=== PATIENT | female | born 1980 | race Caucasian/White ===

== ENCOUNTER 2023-06-19 07:57 | Outpatient (AMB) | payer BC, SELFPAY ==
--- NOTE | 2023-06-19 08:00 | A.OFFVIS_ITS ---
Intake Vital Signs 06/19/23 08:07 Height 5 ft 3 in Weight 171 lb BMI 30.3 BP 102/70 Blood Pressure Location Lt brachial Position Sitting Pulse 78 Pulse Source Pulse Oximeter Pulse Oximetry (%) 98 Oxygen Delivery Method Room Air Intake Visit Reasons: E-INSURANCE EXECUTIVE: Sleep Apnea w/CPAP but can't wear Intake Note: NPV for Sleep Apnea [employer] Specialist Required: No Allergies No Known Allergies Allergy (Verified 06/19/23 08:01) HPI HPI Comments History of Present Illness Details 43 y/o female patient presents to manage MAXIM, dizziness and headache. Pt reports she was diagnosed with MAXIM about a year ago, and started BiPAP. She used the BiPAP for 6 months, but not tolerated. Pt wants to try other options to treat her sleep apnea. Pt has not evaluated by ENT or dentist to treat sleep apnea yet. Pt states that she wakes up a lot in the middle of night, having vivid dream. Pt reports she lost 65 lb over the last year. She was was wt management program, work with rooms director and personal protection specialist for wt loss. Pt also reports dizziness, she feels drunk, sometimes room spinning feeling and staggering. Pt reports hearing loss and tinnitus. She falls frequently, and had CT done recently. She was told that the CT was normal. She had neck pain, and recently finished physical therapy. Her neck pain has improved, but still has dizziness and tinnitus. Pt has hx of chronic migraine, is on Emgality, it helped a lot to reduce her migraine frequency and intensity. PFSH Surgical History (Updated 06/19/23 @ 08:04 by Cheryl Carranza CMA) Hx of cholecystectomy Hx of appendectomy Family History (Updated 06/19/23 @ 08:07 by Cheryl Carranza CMA) Father Skin cancer Rheumatic arteritis Social History (Updated 06/19/23 @ 08:07 by Cheryl Carranza CMA) Alcohol intake: never Patient Tobacco Use Status: Never used Tobacco Review of Systems Const All systems reviewed & are unremarkable except as noted in HPI and below Physical Exam Vital Signs: Last Vital Signs Pulse 78 06/19/23 08:07 BP 102/70 06/19/23 08:07 Pulse Ox 98 06/19/23 08:07 Oxygen Delivery Method Room Air 06/19/23 08:07 BMI result Body Mass Index 30.3 Const General: cooperative Nutritional Appearance: obese Orientation/consciousness: patient oriented x3 Neck Other: trapezium muscle tightness. Neck: Yes full ROM and Yes supple Resp Effort & Inspection: normal respiratory effort and able to speak in complete sentences Neuro Other: wide based walking, unable to do tandem walking. General: patient oriented x3 Cranial nerves: Yes Bilaterally intact EOM present, Yes Normal facial strength present, Yes Midline tongue present, Yes Symmetric palate elevation present, Yes Ability to bilaterally rotate head present and Yes Ability to bilaterally elevate shoulders present Cognition (Neuro): normal cognition Gait exam (Neuro): Wide-based gait present Motor exam (neuro): 5/5 motor strength present throughout, Pronator motor function not present, no tremor noted and Normal motor muscle tone present throughout Deep tendon reflexes (DTR's): Rt Biceps (C5, C6): 2+, Left biceps reflex intensity grade: 2+, Right brachioradialis reflex intensity grade: 2+, Left brachioradialis reflex intensity grade: 2+, Right patellar reflex intensity grade: 2+ and Left patellar reflex intensity grade: 2+ Coordination: tandem gait normal Psych Appearance: grossly normal Mental Status: mental status grossly normal Affect: normal affect Attitude: cooperative Assessment & Plan Assessment & Plan (1) Unsteady gait: Code(s): R26.81 - Unsteadiness on feet (2) Tinnitus: Code(s): H93.19 - Tinnitus, unspecified ear (3) Hearing loss: Code(s): H91.90 - Unspecified hearing loss, unspecified ear (4) Difficulty sleeping: Code(s): G47.9 - Sleep disorder, unspecified (5) Dizziness: Code(s): R42 - Dizziness and giddiness (6) MAXIM treated with BiPAP: Code(s): G47.33 - Obstructive sleep apnea (adult) (pediatric) Plan Advised patient to undergo in lab sleep study to assess sleep apnea. She lost 65 lb over the last year. Will f/u of sleep study for appropriate treatment options. Refer patient to ENT for evaluation of sleep apnea and hearing loss. Advised patient to undergo brain MRI to assess dizziness and unsteady gait. Orders: Orders MR head/brain wo/w con 06/19/23 G43.009 - Migraine without aura, not intractable, without status migrainosus, H91.90 - Unspecified hearing loss, unspecified ear, R26.81 - Unsteadiness on feet, R42 - Dizziness and giddiness RT PSG in-lab sleep study 06/19/23 G43.009 - Migraine without aura, not intractable, without status migrainosus, G47.33 - Obstructive sleep apnea (adult) (pediatric), G47.9 - Sleep disorder, unspecified, R42 - Dizziness and giddiness Referrals Ear/Nose/Throat Referral G47.33 - Obstructive sleep apnea (adult) (pediatric), H91.90 - Unspecified hearing loss, unspecified ear, H93.19 - Tinnitus, unspecified ear, R42 - Dizziness and giddiness Coding Level of Care Code New Pt Level 4 (81852) Diagnoses Unsteady gait R26.81 Tinnitus H93.19 Hearing loss H91.90 Difficulty sleeping G47.9 Dizziness R42 MAXIM treated with BiPAP G47.33
[2023-06-19 08:07] VITALS: BP 102/70; PULSE 78; O2SAT 98; BMI 30.3
== END 2023-06-19 08:55 | disposition home or self-care (01) ==
PROVIDERS: PCP Psychiatry & Neurology Neurology; Visit Provider Nurse Practitioner Family
DX: R26.81 Unsteadiness on feet (principal); H93.19 Tinnitus, unspecified ear; H91.90 Unspecified hearing loss, unspecified ear; G47.9 Sleep disorder, unspecified; R42 Dizziness and giddiness; G47.33 Obstructive sleep apnea (adult) (pediatric)
CPT/HCPCS: 99204

== ENCOUNTER → 2023-06-19 07:57 | Outpatient (BNVA) | payer BC, SELFPAY | PROVIDERS: PCP Psychiatry & Neurology Neurology; Visit Provider Nurse Practitioner Family ==

== ENCOUNTER 2023-07-12 17:13 | Outpatient (REF) | payer BC, SELFPAY ==
--- NOTE | ~2023-07-12 | MR_ITS ---
EXAMINATION: MR BRAIN WITHOUT AND WITH CONTRAST CLINICAL INFORMATION: Migraines, unsteadiness on feet, hearing loss COMPARISON: None. TECHNIQUE: Multiplanar, multisequence imaging was obtained without and with intravenous contrast. Intravenous contrast: 7.5 mL Gadavist. FINDINGS: The VII and VIII cranial nerve complexes are normal in course and caliber. No signal abnormality is visualized within the inner ear structures on the precontrast axial T1-weighted sequence. Fluid signal is preserved within the cochlea, semicircular canals, and vestibule on the high-resolution axial FIESTA sequence. There is no abnormal labyrinthine or intracanalicular enhancement on postcontrast imaging. No cerebellopontine angle lesion. No acute infarct. No acute intracranial hemorrhage or extra-axial fluid collection. The ventricles and sulci are normal in size and configuration without significant volume loss or hydrocephalus. A few scattered punctate T2 FLAIR hyperintense foci within the subcortical white matter are nonspecific, with a couple in the frontal lobes possibly attributable to reported history of migraine headaches. No abnormal intraparenchymal or leptomeningeal enhancement. No mass effect or herniation pattern. Normal appearance of the midline structures. Normal intracranial arterial and dural venous sinus flow voids. The orbits are grossly unremarkable. The paranasal sinuses and mastoids are well aerated. The craniocervical junction is intact. Normal marrow signal. MR/MR head/brain wo/w con IMPRESSION: No retrocochlear pathology. A few nonspecific supratentorial white matter foci, some of which may be attributable to reported history of migraine headaches. No pathologic intracranial enhancement.
[2023-07-12] MEDS: gadobutroL 7.5 ML VIAL IVPUSH (18:02)
== END 2023-07-12 17:14 | disposition home or self-care (01) ==
LOC: HO.MRI 17:13
PROVIDERS: PCP Physician Assistant; Visit Provider Nurse Practitioner Family
DX: G43.009 Migraine without aura, not intractable, without status migrainosus (principal); R42 Dizziness and giddiness
CPT/HCPCS: 70553; A9585

== ENCOUNTER → 2023-07-21 20:30 | Outpatient (REF) | payer BC, SELFPAY | LOC: HO.SL 20:30 | PROVIDERS: PCP Physician Assistant; Visit Provider Nurse Practitioner Family | DX: G47.33 Obstructive sleep apnea (adult) (pediatric) (principal); R42 Dizziness and giddiness | CPT/HCPCS: 95810 ==

== ENCOUNTER → 2023-07-22 04:41 | Outpatient (BNV) | payer BC, SELFPAY | PROVIDERS: PCP Physician Assistant; Visit Provider Psychiatry & Neurology Neurology | DX: G47.63 Sleep related bruxism (principal); R09.02 Hypoxemia | CPT/HCPCS: 95810 ==

== ENCOUNTER 2023-08-21 08:55 | Outpatient (AMB) | payer BC, SELFPAY ==
--- NOTE | 2023-08-21 09:02 | A.OFFVIS_ITS ---
Intake Vital Signs 08/21/23 09:04 Weight 152 lb 2 oz BP 92/62 Blood Pressure Location Lt brachial Position Sitting Pulse 78 Pulse Source Pulse Oximeter Pulse Oximetry (%) 97 Oxygen Delivery Method Room Air Intake Visit Reasons: f/u for worsening symptoms-Confirmed Chief Accounting Officer Required: No Allergies No Known Allergies Allergy (Verified 08/21/23 09:02) HPI HPI Comments History of Present Illness Details 43 y/o female patient presents for follo w up of sleep study, dizziness and frequent falls. The PSG sleep study result was significant for bruxism with frequent contractions note in the EMG channel. The oxygen was below 88% for over 50 min and supplement oxygen at 1LPM was used during the sleep study. There was no evidence of sleep apnea. Brain MRI report reviewed. No retrocochlear pathology. A few nonspecific supratentorial white matter foci, some of which may be attributable to reported history of migraine headaches. No pathologic intracranial enhancement. Pt reports she fell twice since the last visit. She was not dizzy, but feels like she is in a boat, had difficulty balancing and tripped over. Pt feels her legs dragging, too. Pt reports she had vestibular therapy in the past, but not really helpful for vertigo. PFSH Surgical History Hx of cholecystectomy Hx of appendectomy Family History Father Skin cancer Rheumatic arteritis (Updated 08/21/23 @ 09:04 by Cheryl Carranza CMA) Alcohol intake: never Patient Tobacco Use Status: Never used Tobacco Review of Systems Const All systems reviewed & are unremarkable except as noted in HPI and below Physical Exam Vital Signs: Last Vital Signs Pulse 78 08/21/23 09:04 BP 92/62 08/21/23 09:04 Pulse Ox 97 08/21/23 09:04 Oxygen Delivery Method Room Air 08/21/23 09:04 Const General: cooperative Nutritional Appearance: obese Orientation/consciousness: patient oriented x3 Neck Other: trapezium muscle tightness. Neck: Yes full ROM and Yes supple Resp Effort & Inspection: normal respiratory effort and able to speak in complete sentences Neuro Other: wide based walking, unable to do tandem walking. General: patient oriented x3 Cranial nerves: Yes Bilaterally intact EOM present, Yes Normal facial strength present, Yes Midline tongue present, Yes Symmetric palate elevation present, Yes Ability to bilaterally rotate head present and Yes Ability to bilaterally elevate shoulders present Cognition (Neuro): normal cognition Gait exam (Neuro): Wide-based gait present Motor exam (neuro): 5/5 motor strength present throughout, Pronator motor function not present, no tremor noted and Normal motor muscle tone present throughout Deep tendon reflexes (DTR's): Rt Biceps (C5, C6): 2+, Left biceps reflex intensity grade: 2+, Right brachioradialis reflex intensity grade: 2+, Left brachioradialis reflex intensity grade: 2+, Right patellar reflex intensity grade: 2+ and Left patellar reflex intensity grade: 2+ Coordination: tandem gait normal Psych Appearance: grossly normal Mental Status: mental status grossly normal Affect: normal affect Attitude: cooperative Assessment & Plan Assessment & Plan (1) Hypoxemia associated with sleep: Code(s): G47.36 - Sleep related hypoventilation in conditions classified elsewhere (2) Bruxism, sleep-related: Code(s): G47.63 - Sleep related bruxism (3) Unsteady gait: Code(s): R26.81 - Unsteadiness on feet (4) Tinnitus: Code(s): H93.19 - Tinnitus, unspecified ear (5) Dizziness: Code(s): R42 - Dizziness and giddiness Plan Advised patient to consult with her dentist for mouth guard to prevent bruxism. Start flexeril 5 mg along with magnesium 400 mg qHS for muscle contrations. Advised patient to take cervical x ray to assess neck pain and dizziness. Refer patient to physical therapy for myofascial release. Will check blood gas to assess obesity hypoventilation syndrome. Orders: Orders XR cervical spine 2V Today G43.009 - Migraine without aura, not intractable, without status migrainosus, G47.63 - Sleep related bruxism, H93.19 - Tinnitus, unspecified ear, M54.2 - Cervicalgia, R26.81 - Unsteadiness on feet, R42 - Dizziness and giddiness ABG Today G47.36 - Sleep related hypoventilation in conditions classified elsewhere PT Evaluation and Treatment 12 Weeks G43.009 - Migraine without aura, not intractable, without status migrainosus, G47.63 - Sleep related bruxism, H93.19 - Tinnitus, unspecified ear, M54.2 - Cervicalgia, R26.81 - Unsteadiness on feet, R42 - Dizziness and giddiness Medications: New cyclobenzaprine 5 mg PO BEDTIME 30 days 30 tabs 1RF magnesium oxide 400 mg PO BEDTIME 30 days 30 tabs 1RF Coding Level of Care Code Est Pt Level 4 (02914) Diagnoses Hypoxemia associated with sleep G47.36 Bruxism, sleep-related G47.63 Unsteady gait R26.81 Tinnitus H93.19 Dizziness R42
[2023-08-21 09:04] VITALS: BP 92/62; PULSE 78; O2SAT 97
== END 2023-08-21 09:37 | disposition home or self-care (01) ==
PROVIDERS: PCP Physician Assistant; Visit Provider Nurse Practitioner Family
DX: G47.63 Sleep related bruxism (principal); R29.6 Repeated falls; H93.13 Tinnitus, bilateral; R42 Dizziness and giddiness
CPT/HCPCS: 99214

== ENCOUNTER → 2023-08-21 08:55 | Outpatient (BNVA) | payer BC, SELFPAY | PROVIDERS: PCP Physician Assistant; Visit Provider Nurse Practitioner Family ==

== ENCOUNTER 2023-09-22 13:32 | Outpatient (REF) | payer BC, SELFPAY | END 2023-09-22 13:33 | disposition home or self-care (01) | LOC: HO.XRAY 13:32 | PROVIDERS: PCP Physician Assistant; Visit Provider Nurse Practitioner Family | DX: Z13.89 Encounter for screening for other disorder (principal) ==

== ENCOUNTER 2023-12-22 08:09 | Outpatient (AMB) | payer BC, SELFPAY ==
--- NOTE | 2023-12-22 08:14 | A.OFFVIS_ITS ---
Intake Vital Signs 12/22/23 08:15 Height 5 ft 3 in Weight 120 lb BMI 21.3 BP 96/74 Blood Pressure Location Rt brachial Position Sitting Pulse 84 Pulse Source Pulse Oximeter Pulse Oximetry (%) 98 Oxygen Delivery Method Room Air Intake Visit Reasons: Dizziness-LVM Intake Note: Patient presents for dizziness. dizziness has gotten worst comes and goes and causes me to fall over. has had a couple falls because of it Allergies No Known Allergies Allergy (Verified 01/02/24 10:26) Medication List - Last Reconciled 12/22/23 by WICHO Jackson fluoxetine 20 mg PO DAILY gabapentin 600 mg PO TID galcanezumab-gnlm (Emgality Pen) 120 mg subcut ONCE 30 days lamotrigine 200 mg PO BID magnesium oxide 400 mg PO BEDTIME 30 days rosuvastatin 5 mg PO DAILY semaglutide (weight loss) (Wegovy) mg subcut HPI HPI Comments History of Present Illness Details 43-yr-old female presents for f/u visit. Pt reports she continues to be dizzy despite doing extensive vestibular PT. Her PT is concerned that pt has nystagmus. She has had the dizziness for the past 6 months- 1yr. She describes her dizziness- a feeling like she is drunk, not right in space sensation. This can be a/w diplopia, and a feeling like she cannot use her legs- she will just fall over. Her vision will become blurry, her depth perception becomes weird- this makes her feel like she is on a rocking boat. Sometimes, when she has fallen, she just cannot move her legs and is stuck on the ground x's 1-2 minutes. She has the dizziness at least once a day- lasts 1-2 minutes, or may linger for 5-10 minutes hwere she needs to hold herself up against a wall- but sometimes she just falls. down. She has approx 2 dizziness episodes w/ falling a week. She has recently fallen down 2 flights of stairs- and hit her head. Denies any usual triggers- can happen with but not always a/w just standing up, exercising (walking quickly on a treadmill), eating. Denies any typical time of day these attacks occur. She has dizziness a/w her migraine- however when she has a migraine she just lays down so she does not fall down. Her typical migraine - aura- bilateral kaledoscope, more on left x's 30 minutes. Severe pounding, retroorbital pain, a/w photophobia, osmophobia, allodynia, nausea, vomiting, more severe room spinning dizziness, brain fog, activity intolerance. She has a migraine twice a week. No daily headache. She has been on Emgality x's 2 yrs- the Emgality has decreased her migraine burden in both frequency and severity. Sumatriptan- some effect, but tolerates. Her previous migraine med tx's- Ajovy. 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 Last seizure was in 2009 while . She has been on Lamotrigene x's at least 2 yrs for migraine. She does not believe she has had her lamotrigine level checked in some time. She had seen neurology at [facility] who though the dizziness was r/t sleep apnea. F/u sleep study here showed AHI 0.2/hr w/ O2 glenroy of 84% (SpO2 < 88% x's > 50 minutes, average SpO2 90%). She was advsied to have ABGs- which pt states she had done, but results are not available. Pt denies h/o asthma, COPD, SOB, wheezing, usual cough, hoarseness. Denies family h/o resp d/o's. [facility] Surgical History Hx of cholecystectomy Hx of appendectomy Family History Father Skin cancer Rheumatic arteritis Social History (Updated 01/02/24 @ 10:28 by Corinna Martines LPN) Alcohol intake: never Patient Tobacco Use Status: Never used Tobacco Physical Exam Vital Signs: Last Vital Signs Pulse 84 12/22/23 08:15 BP 96/74 12/22/23 08:15 Pulse Ox 98 12/22/23 08:15 Oxygen Delivery Method Room Air 12/22/23 08:15 BMI result Body Mass Index 21.3 Const General: cooperative and no acute distress Orientation/consciousness: patient oriented x3 Resp Effort & Inspection: normal respiratory effort and able to speak in complete sentences Neuro General: patient oriented x3 Cranial nerves: Yes CN's II-XII intact bilaterally Cognition (Neuro): normal cognition Psych Appearance: grossly normal Mental Status: mental status grossly normal Speech and movement: Normal speech and movement present Affect: normal affect Attitude: cooperative Assessment & Plan Assessment & Plan (1) Dizziness: Code(s): R42 - Dizziness and giddiness (2) Hypoxemia associated with sleep: Code(s): G47.36 - Sleep related hypoventilation in conditions classified elsewhere Plan For dizziness and nystagmus: I suspect that patient's recurrent dizziness and nystagmus may be attributed to her lamotrigine use. Patient is currently taking 200 mg b.i.d., which was started prior to her recent 100 lb weight loss. Additionally, this is a high dose of lamotrigine, especially as patient is not on a con, in enzyme-inducing AED. Will check lamotrigine level. We will check nutritional labs, to ensure no nutritional deficiencies that may be contributing to her dizziness and falls. For migraine: We will refill sumatriptan 100 mg p.r.n.. Discussed that in general lamotrigine can be helpful for migraine aura, however is not as effective for migraine headache pain. Continue Emgality 120 mg subcu q.month. For nocturnal hypoxemia noted on recent HST: Will refer patient for pulmonology consult. Follow-up upon review of above, and in 3 months or sooner as needed. Orders: Orders Complete Blood Count Auto Diff 12/22/23 G47.36 - Sleep related hypoventilation in conditions classified elsewhere, G43.009 - Migraine without aura, not intractable, without status migrainosus, W19.XXXA - Unspecified fall, initial encounter, R53.1 - Weakness, R42 - Dizziness and giddiness, R63.4 - Abnormal weight loss TSH reflex Free T4 12/22/23 G47.36 - Sleep related hypoventilation in conditions classified elsewhere, G43.009 - Migraine without aura, not intractable, without status migrainosus, W19.XXXA - Unspecified fall, initial encounter, R53.1 - Weakness, R42 - Dizziness and giddiness, R63.4 - Abnormal weight loss Vitamin A 12/22/23 G47.36 - Sleep related hypoventilation in conditions classified elsewhere, G43.009 - Migraine without aura, not intractable, without status migrainosus, W19.XXXA - Unspecified fall, initial encounter, R53.1 - Weakness, R42 - Dizziness and giddiness, R63.4 - Abnormal weight loss Vitamin B12 12/22/23 G47.36 - Sleep related hypoventilation in conditions classified elsewhere, G43.009 - Migraine without aura, not intractable, without status migrainosus, [id number].XXXA - Unspecified fall, initial encounter, R53.1 - Weakness, R42 - Dizziness and giddiness, R63.4 - Abnormal weight loss Vitamin B3 (Niacin) 12/22/23 G47.36 - Sleep related hypoventilation in conditions classified elsewhere, G43.009 - Migraine without aura, not intractable, without status migrainosus, [id number].XXXA - Unspecified fall, initial encounter, R53.1 - Weakness, R42 - Dizziness and giddiness, R63.4 - Abnormal weight loss Vitamin B6 12/22/23 G47.36 - Sleep related hypoventilation in conditions classified elsewhere, G43.009 - Migraine without aura, not intractable, without status migrainosus, [id number].XXXA - Unspecified fall, initial encounter, R53.1 - Weakness, R42 - Dizziness and giddiness, R63.4 - Abnormal weight loss Vitamin C 12/22/23 G47.36 - Sleep related hypoventilation in conditions classified elsewhere, G43.009 - Migraine without aura, not intractable, without status migrainosus, [id number].XXXA - Unspecified fall, initial encounter, R53.1 - Weakness, R42 - Dizziness and giddiness, R63.4 - Abnormal weight loss Vitamin D 25-OH (D2 and D3) 12/22/23 G47.36 - Sleep related hypoventilation in conditions classified elsewhere, G43.009 - Migraine without aura, not intractable, without status migrainosus, [id number].XXXA - Unspecified fall, initial encounter, R53.1 - Weakness, R42 - Dizziness and giddiness, R63.4 - Abnormal weight loss Vitamin E 12/22/23 G47.36 - Sleep related hypoventilation in conditions classified elsewhere, G43.009 - Migraine without aura, not intractable, without status migrainosus, [id number].XXXA - Unspecified fall, initial encounter, R53.1 - Weakness, R42 - Dizziness and giddiness, R63.4 - Abnormal weight loss Vitamin K1 12/22/23 G47.36 - Sleep related hypoventilation in conditions class ified elsewhere, G43.009 - Migraine without aura, not intractable, without status migrainosus, [id number].XXXA - Unspecified fall, initial encounter, R53.1 - Weakness, R42 - Dizziness and giddiness, R63.4 - Abnormal weight loss Lamotrigine Lamictal 12/22/23 G47.36 - Sleep related hypoventilation in conditions classified elsewhere, G43.009 - Migraine without aura, not intractabl e, without status migrainosus, [id number].XXXA - Unspecified fall, initial encounter, R53.1 - Weakness, R42 - Dizziness and giddiness, R63.4 - Abnormal weight loss Comprehensive Met. Panel 12/22/23 G47.36 - Sleep related hypoventilation in conditions classified elsewhere, G43.009 - Migraine without aura, not intractable, without status migrainosus, [id number].XXXA - Unspecified fall, initial encounter, R53.1 - Weakness, R42 - Dizziness and giddiness, R63.4 - Abnormal weight loss Vitamin B12 and Folate 12/22/23 G47.36 - Sleep related hypoventilation in co nditions classified elsewhere, G43.009 - Migraine without aura, not intractable, without status migrainosus, [id number].XXXA - Unspecified fall, initial encounter, R53.1 - Weakness, R42 - Dizziness and giddiness, R63.4 - Abnormal weight loss Vitamin B1 12/22/23 G47.36 - Sleep related hypoventilation in conditions classified elsewhere, G43.009 - Migraine without aura, not intractable, without status migrainosus, [id number].XXXA - Unspecified fall, initial encounter, R53.1 - Weakness, R42 - Dizziness and giddiness, R63.4 - Abnormal weight loss Vitamin B2 (Riboflavin) 12/22/23 G47.36 - Sleep related hypoventilation in conditions classified elsewhere, G43.009 - Migraine without aura, not intractable, without status migrainosus, [id number].XXXA - Unspecified fall, initial encounter, R53.1 - Weakness, R42 - Dizziness and giddiness, R63.4 - Abnormal weight loss Vitamin B5 (Pantothenic Acid) 12/22/23 G47.36 - Sleep related hypoventilation in conditions classified elsewhere, G43.009 - Migraine without aura, not intractable, without status migrainosus, [id number].XXXA - Unspecified fall, initial encounter, R53.1 - Weakness, R42 - Dizziness and giddiness, R63.4 - Abnormal weight loss Referrals Pulmonology Referral G47.36 - Sleep related hypoventilation in conditions classified elsewhere Medications: New sumatriptan succinate 50 - 100 mg orally at onset of headache, may repeat in 2 hrs PRN; max 2 tabs per day or 4 tabs/week (may take with Ibuprofen) 12 tabs 6RF migraine headache 30 days Coding Level of Care Code Est Pt Level 4 (31694) Diagnoses Dizziness R42 Hypoxemia associated with sleep G47.36
[2023-12-22 08:15] VITALS: BP 96/74; PULSE 84; O2SAT 98; BMI 21.3
== END 2023-12-22 09:14 | disposition home or self-care (01) ==
PROVIDERS: PCP Physician Assistant; Visit Provider Nurse Practitioner Family
DX: R42 Dizziness and giddiness (principal); G47.36 Sleep related hypoventilation in conditions classified elsewhere
CPT/HCPCS: 99214

== ENCOUNTER → 2023-12-22 08:09 | Outpatient (BNVA) | payer BC, SELFPAY | PROVIDERS: PCP Physician Assistant; Visit Provider Nurse Practitioner Family ==

== ENCOUNTER 2024-01-02 10:18 | Outpatient (AMB) | payer BC, SELFPAY ==
[2024-01-02 10:23] VITALS: BP 118/64; PULSE 73; O2SAT 98; BMI 21.1
--- NOTE | 2024-01-02 10:23 | A.OFFVIS_ITS ---
Intake Vital Signs 01/02/24 10:23 Height 5 ft 3 in Weight 119 lb BMI 21.1 BP 118/64 Blood Pressure Location Rt brachial Position Sitting Pulse 73 Pulse Source Pulse Oximeter Pulse Oximetry (%) 98 Oxygen Delivery Method Room Air Intake Visit Reasons: Sleep related hypoventilation Fire Chief'S Aide Required: No Fire Chief'S Aide: Fire Chief'S Aide offered & declined Accompanied by: Self / Same As Patient Allergies No Known Allergies Allergy (Verified 01/02/24 10:26) Medication List - Last Reconciled 01/02/24 by Corinna Martines LPN fluoxetine 20 mg PO DAILY gabapentin 600 mg PO TID galcanezumab-gnlm (Emgality Pen) 120 mg subcut ONCE 30 days lamotrigine 200 mg PO BID rosuvastatin 5 mg PO DAILY semaglutide (weight loss) (Wegovy) mg subcut sumatriptan succinate 50 - 100 mg orally at onset of headache, may repeat in 2 hrs PRN; max 2 tabs per day or 4 tabs/week (may take with Ibuprofen) 30 days HPI Sleep related hypoventilation HPI Details Tyra is pleasant 43 year female, never smoker, with underlying asthma, bipolar disorder and seizure disorder. She was referred by neurology/sleep medicine for pulmonary evaluation for nocturnal hypoxemia. She reports being diagnosed with mild sleep apnea years ago and symptoms of morning headache, daytime fatigue and PND, using BiPAP with good effect. She then started on an exercise and diet regimen, ultimately using wegovy, losing 100 lbs over the last year. Since the she had recent sleep study which did not reveal sleep apnea, however did reveal oxygen saturation <88% for about an hour. She reports grandmother, smoker with COPD, otherwise no pertinent family history. She reports being diagnosed with asthma as a child, but has not had any symptoms as an adult. Denies any intubations. At this time, she denies cough, wheezing or chest tightness. She denies dyspnea at rest but will occasionally feel short of breath with intense exercise, such as running. PFSH Surgical History Hx of cholecystectomy Hx of appendectomy Family History Father Skin cancer Rheumatic arteritis Social History (Updated 01/02/24 @ 10:28 by Corinna Martines LPN) Alcohol intake: never Patient Tobacco Use Status: Never used Tobacco Review of Systems Const Denies chills, Denies excessive sweating, Denies fever(s), Denies headache(s) and Denies night sweats Eyes Denies dry eyes, Denies irritation and Denies itchy eyes ENT Reports Normal hearing present, Denies headache(s), Denies nasal congestion, Denies nasal discharge, Denies post nasal drip and Denies sore throat Card Denies chest pain, Denies chest pain at rest, Denies chest pain with activity, Denies claudication, Denies leg edema, Denies dyspnea, Denies orthopnea and Denies paroxysmal nocturnal dyspnea Resp Denies chest congestion, Denies cough, Denies excessive phlegm production, Denies pain on inspiration, Denies pain with cough, Denies dyspnea, Denies stridor and Denies wheezing Musc Denies myalgias Neuro Reports Normal hearing present and Denies headache(s) Endo Denies excessive sweating Rahul/Lymph Denies lymphadenopathy Aller/Immun Denies itchy eyes, Denies seasonal rhinorrhea and Denies wheezing Physical Exam Vital Signs: Last Vital Signs Pulse 73 01/02/24 10:23 BP 118/64 01/02/24 10:23 Pulse Ox 98 01/02/24 10:23 Oxygen Delivery Method Room Air 01/02/24 10:23 BMI result Body Mass Index 21.1 Const General: cooperative, healthy appearing, comfortable, no acute distress, well developed and alert Orientation/consciousness: patient oriented x3 Limitations: no limitations HEENT Head: Yes normal to inspection, Yes normocephalic and Yes atraumatic Ears: hearing grossly normal bilaterally and external ears normal Eyes General: appearance normal, both eyes and all related structures Eyelids: Yes eyelids normal Sclerae: sclerae normal EOM: EOMs intact bilaterally Neck Neck: Yes normal visual inspection and Yes no lymphadenopathy Lymphatic: no lymphadenopathy noted Chest Chest palpation & inspection: normal inspection of the chest Resp Effort & Inspection: normal respiratory effort, able to speak in complete s entences, no audible wheezes, no cough, no stridor, not tachypneic, no tripod positioning and no use of accessory muscles Auscultation: clear to auscultation bilaterally Cardio Jugular venous distension: no JVD Rate: regular rate Rhythm: regular rhythm Skin Other: warm, dry General skin exam: no rashes or lesions noted Neuro General: patient oriented x3 Cranial nerves: Yes Normal hearing present Cognition (Neuro): normal cognition Gait exam (Neuro): Normal gait present Extrem General: Yes normal to inspection, Yes capillary refill normal, Yes no clubbing, cyanosis or edema and Yes no pedal edema Psych Appearance: grossly normal and well kempt Speech and movement: Normal speech and movement present and Clear speech present Affect: normal affect Attitude: cooperative Thought process: Normal thought process present Thought content: Normal thought content present Insight: Good insight present (Psych) Judgement: Good judgement present (Psych) Office Procedures 6 Minute Walk Time:: 10:44 SPO2 % at rest: 97 Pulse at rest: 74 SPO2 % during excercise: 90 Pulse during excercise: 112 SPO2 % after excercise: 99 Pulse after excercise: 80 Distance in yards walked: 1,000 Lily Score: 3 Performance Observations:: Patient walked unassisted on level ground at a moderate pace. Maintained O2 saturation at 90% or greater and pulse rate of 112 or lower for the entire walk. Patient denies shortness of breath. Patient did not require O2 supplementation. 52595 - 6 Minute Walk Assessment & Plan Assessment & Plan (1) Hypoxemia associated with sleep: Code(s): G47.36 - Sleep related hypoventilation in conditions classified elsewhere (2) Dyspnea on exertion: Code(s): R06.09 - Other forms of dyspnea Plan Tyra presents for evaluation of nocturnal hypoxia found on recent sleep study. Prior history of MAXIM but resolved with 100 lb weight loss. Unclear etiology of hypoxia, will send for PFT to assess for underlying respiratory disorder. 6MWT performed and patient's oxygen saturation decreased to 90%, however did not decrease below 88%. Will also send for CXR, with possible CT chest to assess for parenchymal condition contributing to nocturnal hypoxia. If unremarkable, will consider echo. All questions were answered and patient is in agreement of plan. Will follow up to review results. Orders: Orders XR chest 2V Today R09.02 - Hypoxemia AMB 6 minute walk Today G47.36 - Sleep related hypoventilation in conditions classified elsewhere, R09.02 - Hypoxemia PFT pulmonary function test Today G47.36 - Sleep related hypoventilation in conditions classified elsewhere, R06.09 - Other forms of dyspnea Coding Level of Care Code New Pt Level 4 (43689) Diagnoses Hypoxemia associated with sleep G47.36 Dyspnea on exertion R06.09 CPT Codes Coding ([id number])
[2024-01-02 11:00] VITALS: PULSE 74; O2SAT 97
== END 2024-01-02 11:04 | disposition home or self-care (01) ==
PROVIDERS: PCP Physician Assistant; Visit Provider Nurse Practitioner Family
DX: R06.09 Other forms of dyspnea (principal); G47.36 Sleep related hypoventilation in conditions classified elsewhere
CPT/HCPCS: 94618; 99204

== ENCOUNTER → 2024-01-02 10:18 | Outpatient (BNVA) | payer BC, SELFPAY | PROVIDERS: PCP Physician Assistant; Visit Provider Nurse Practitioner Family | DX: R09.02 Hypoxemia (principal); G47.36 Sleep related hypoventilation in conditions classified elsewhere; R06.09 Other forms of dyspnea | CPT/HCPCS: 94618 ==

== ENCOUNTER 2024-02-23 10:01 | Outpatient (REF) | payer BC, SELFPAY ==
[2024-02-23 09:54] VITALS: PULSE 84; RESP 16; O2SAT 99
[2024-02-23 11:09] LABS: MANUAL DIFF FLAG NO
[2024-02-23 11:40] LABS: Basophils Percent Auto 0.8 % (0-2); Eosinophils Absolute Auto 0.1 X10*3/uL (0.0-0.4); Eosinophils Percent Auto 1.5 % (0-4); Hematocrit 41.5 % (37.0-47.0); Hemoglobin 14.1 g/dl (12.0-16.0); Imm Gran Abs Auto 0.01 X10*3/uL (0.00-0.03); Imm Gran Pct Auto 0.3 % (0.0-0.4); Lymphocytes Absolute Auto 1.1 X10*3/uL (1.2-4.9); Lymphocytes Percent Auto 27.4 % (20-40); Mean Corpuscular Hemoglobin 31.7 pg (27.0-33.0); Mean Corpuscular Volume 93.3 fL (80.0-98.0); Mean Platelet Volume 8.5 fL (9.4-12.3); Monocytes Absolute Auto 0.5 X10*3/uL (0.1-1.2); Monocytes Percent Auto 12.8 % (2-11); Neutrophils Absolute Auto 2.2 x10*3/uL (2.0-8.3); Neutrophils Percent Auto 57.2 % (45-73); Platelet Count 242 X10*3/uL (160-400); Red Blood Count 4.45 X10*6/uL (4.20-5.50); Red Cell Distribution Width 13.9 % (11.0-16.0); White Blood Count 3.9 X10*3/uL (4.8-10.8)
[2024-02-23 12:19] LABS: Alanine Aminotransferase 20 U/L (0-31); Albumin Level 4.1 g/dL (3.5-5.0); Alkaline Phosphatase 74 U/L (39-117); Anion Gap 12 (12-20); Aspartate Amino Transferase 21 U/L (5-31); Bilirubin Total 0.4 mg/dL (0.0-1.0); Blood Urea Nitrogen 9 mg/dL (9-16); Calcium 9.1 mg/dL (8.4-10.2); Carbon Dioxide 25 mmol/L (22-29); Chloride 104 mmol/L (96-108); Estimated Glomerular Filt Rate > 60; Glucose Random 100 mg/dL (60-115); Potassium 3.4 mmol/L (3.3-5.1); Sodium 138 mmol/L (135-145); Total Protein 6.1 g/dL (6.5-8.0)
[2024-02-23 12:35] LABS: TSH reflex Free T4 0.73 uIU/mL (0.32-4.0)
[2024-02-23 12:42] LABS: Folate 6.4 ng/mL (> or = 4.0); Vitamin B12 275 pg/mL (200-900)
--- NOTE | 2024-02-23 16:40 | PFT_ITS ---
Flows: FEV1: 108 % of predicted at 2.93 L FVC: 103 % of predicted at 3.43 L FEV1/FVC: 85 % Bronchodilator response: Absent Volumes: Total lung capacity: 89 % of predicted at 4.35 L Residual volume: 71 % of predicted at 0.92 L Slow vital capacity: 95 % of predicted at 3.43 L Expiratory reserve volume: 131 % of predicted at 1.37 L Diffusion capacity: Normal Impression: No obstructive or restrictive ventilatory defect. No bronchodilator response. Normal pulmonary function test. MTDD
[2024-02-27 09:28] LABS: Lamotrigine Lamictal 12.4 mcg/mL (2.5-15.0)
[2024-02-28 02:29] LABS: Vitamin A 36 mcg/dL (38-98)
[2024-02-28 17:13] LABS: Vitamin C <0.1 mg/dL (0.3-2.7)
[2024-02-28 17:28] LABS: Beta-Gamma Tocopherol <1.0 mg/L (<=4.3)
[2024-02-28 21:29] LABS: Vitamin K1 444 pg/mL (130-1500)
[2024-02-29 10:48] LABS: Nicotinamide 24 ng/mL; Vit B3 - Nicotinic Acid <20 ng/mL
[2024-02-29 11:08] LABS: Vitamin B2 (Riboflavin) <5.0 nmol/L (6.2-39.0); Vitamin B5 (Pantothenic Acid) <40 ng/mL (<275)
[2024-02-29 14:12] LABS: Vitamin D 25-OH, D2 <4 ng/mL; Vitamin D 25-OH, D3 21 ng/mL; Vitamin D 25-OH, Total 21 ng/mL (30-100)
[2024-02-29 15:28] LABS: Vitamin B1 13 nmol/L (8-30)
[2024-02-29 15:58] LABS: Vitamin B6 6.1 ng/mL (2.1-21.7)
== END 2024-02-23 10:02 | disposition home or self-care (01) ==
LOC: HO.RESP 10:01
PROVIDERS: Absent Provider Nurse Practitioner Family; PCP Physician Assistant; Visit Provider Nurse Practitioner Family
DX: G43.009 Migraine without aura, not intractable, without status migrainosus (principal); G47.36 Sleep related hypoventilation in conditions classified elsewhere; W19.XXXA Unspecified fall, initial encounter; R53.1 Weakness; R42 Dizziness and giddiness; R63.4 Abnormal weight loss; R06.09 Other forms of dyspnea; Z79.899 Other long term (current) drug therapy
CPT/HCPCS: 36415; 80053; 80175; 82180; 82306; 82607; 82746; 84207; 84252; 84425; 84443; 84446; 84590; 84591; 84597; 85025; 94010; 94640; 94727; 94729

== ENCOUNTER → 2024-02-23 16:40 | Outpatient (BNV) | payer BC, SELFPAY | PROVIDERS: Absent Provider Nurse Practitioner Family; PCP Physician Assistant; Visit Provider Internal Medicine Pulmonary Disease | DX: R06.09 Other forms of dyspnea (principal) | CPT/HCPCS: 94060; 94727; 94729 ==

== ENCOUNTER 2024-03-01 09:54 | Outpatient (AMB) | payer BC, SELFPAY ==
--- NOTE | 2024-03-01 10:04 | MHC.OFFVIS ---
Vital Signs 03/01/24 10:05 Height 5 ft 3 in Weight 114 lb 6 oz BMI 20.3 BP 98/60 Blood Pressure Location Lt brachial Position Sitting Pulse 72 Pulse Source Pulse Oximeter Pulse Oximetry (%) 98 Oxygen Delivery Method Room Air Intake Visit Reasons: Sleep related hypoventilation Allergies No Known Allergies Allergy (Verified 03/01/24 10:07) HPI HPI Sleep related hypoventilation: Details: Tyra is pleasant 43 year female, never smoker, with underlying asthma, bipolar disorder and seizure disorder. She was initially referred for nocturnal hypoxemia, oxygen saturation <88% for about an hour, found on in lab PSG in 08/17. Previously diagnosed with mild sleep apnea years ago and symptoms of morning headache, daytime fatigue and PND, using BiPAP with good effect. She then started on an exercise and diet regimen, ultimately using wegovy, losing 100 lbs over the last year. She reports good control of respiratory symptoms at this time, previously reporting dyspnea on exertion and remains quite active with minimal symptoms. Today she presents to review PFT. At the last visit, she was sent for CXR with plan for chest CT but was unable to complete CXR. [facility] Surgical History Hx of cholecystectomy Hx of appendectomy Family History Father Skin cancer Rheumatic arteritis Social History Alcohol intake: never Patient Tobacco Use Status: Never used Tobacco Review of Systems Const Denies chills, Denies excessive sweating, Denies fever(s), Denies headache(s) and Denies night sweats Eyes Denies dry eyes, Denies irritation and Denies itchy eyes ENT Reports Normal hearing present, Denies headache(s), Denies nasal congestion, Denies nasal discharge, Denies post nasal drip and Denies sore throat Card Denies chest pain, Denies chest pain at rest, Denies chest pain with activity, Denies claudication, Denies leg edema, Denies dyspnea, Denies dyspnea on exertion, Denies orthopnea and Denies paroxysmal nocturnal dyspnea Resp Denies chest congestion, Denies cough, Denies excessive phlegm production, Denies pain on inspiration, Denies pain with cough, Denies dyspnea, Denies dyspnea on exertion, Denies stridor and Denies wheezing Musc Denies myalgias Neuro Reports Normal hearing present and Denies headache(s) Endo Denies excessive sweating Rahul/Lymph Denies lymphadenopathy Aller/Immun Denies itchy eyes, Denies seasonal rhinorrhea and Denies wheezing Physical Exam Vital Signs: Last Vital Signs Pulse 72 03/01/24 10:05 BP 98/60 03/01/24 10:05 Pulse Ox 98 03/01/24 10:05 Oxygen Delivery Method Room Air 03/01/24 10:05 BMI result Body Mass Index 20.3 Const General: cooperative, healthy appearing, comfortable, no acute distress, well developed and alert Orientation/consciousness: patient oriented x3 Limitations: no limitations HEENT Head: Yes normal to inspection, Yes normocephalic and Yes atraumatic Ears: hearing grossly normal bilaterally and external ears normal Eyes General: appearance normal, both eyes and all related structures Eyelids: Yes eyelids normal Sclerae: sclerae normal EOM: EOMs intact bilaterally Neck Neck: Yes normal visual inspection and Yes no lymphadenopathy Lymphatic: no lymphadenopathy noted Chest Chest palpation & inspection: normal inspection of the chest Resp Other: diminished RLL compared to LLL Effort & Inspection: normal respiratory effort, able to speak in complete sentences, no audible wheezes, no cough, no stridor, not tachypneic, no tripod positioning and no use of accessory muscles Cardio Jugular venous distension: no JVD Rate: regular rate Rhythm: regular rhythm Skin Other: warm, dry General skin exam: no rashes or lesions noted Neuro General: patient oriented x3 Cranial nerves: Yes Normal hearing present Cognition (Neuro): normal cognition Gait exam (Neuro): Normal gait present Extrem General: Yes normal to inspection, Yes capillary refill normal, Yes no clubbing, cyanosis or edema and Yes no pedal edema Psych Appearance: grossly normal and well kempt Speech and movement: Normal speech and movement present and Clear speech present Affect: normal affect Attitude: cooperative Thought process: Normal thought process present Thought content: Normal thought content present Insight: Good insight present (Psych) Judgement: Good judgement present (Psych) Assessment & Plan Assessment & Plan (1) Hypoxemia associated with sleep: Code(s): G47.36 - Sleep related hypoventilation in conditions classified elsewhere Category: Medical Plan Reviewed PFT which revealed no obstructive nor restrictive ventilatory defects. No bronchodilator response. TLC, RV and DLCO normal. At the last visit, 6MWT performed and patient's oxygen saturation decreased to 90%, however did not decrease below 88%. Encouraged patient to obtain CXR for abnormal lung sounds today, with diminished sounds in RLL, compared to LLL. Will also send for CT chest to assess for parenchymal condition contributing to nocturnal hypoxia. She denies any dyspnea, or chest pain. If unremarkable, will consider echo. All questions were answered and patient is in agreement of plan. Will follow up to review results. Orders: Orders XR chest 2V Today G47.36 - Sleep related hypoventilation in conditions classified elsewhere CT chest wo IV con Today R06.89 - Other abnormalities of breathing, R09.02 - Hypoxemia Coding Level of Care Code Est Pt Level 4 (33343) Diagnoses Hypoxemia associated with sleep G47.36
[2024-03-01 10:05] VITALS: BP 98/60; PULSE 72; O2SAT 98; BMI 20.3
== END 2024-03-01 10:26 | disposition home or self-care (01) ==
PROVIDERS: PCP Physician Assistant; Visit Provider Nurse Practitioner Family
DX: G47.39 Other sleep apnea (principal)
CPT/HCPCS: 99214

== ENCOUNTER → 2024-03-01 09:54 | Outpatient (BNVA) | payer BC, SELFPAY | PROVIDERS: PCP Physician Assistant; Visit Provider Nurse Practitioner Family ==

== ENCOUNTER 2024-05-03 07:32 | Outpatient (AMB) | payer BC, SELFPAY ==
--- NOTE | 2024-05-03 07:33 | MHC.OFFVIS ---
Intake Visit Reasons: Follow up-LVM Intake Note: Patient presents for follow up. Allergies No Known Allergies Allergy (Verified 05/03/24 07:33) Medication List - Last Reconciled 05/03/24 by WICHO Jackson ascorbic acid (vitamin C) 250 mg PO BID 30 days atogepant 30 mg PO DAILY 30 days cholecalciferol (vitamin D3) 25 mcg PO DAILY 30 days fluoxetine 20 mg PO DAILY gabapentin 600 mg PO TID galcanezumab-gnlm (Emgality Pen) 120 mg subcut ONCE 30 days lamotrigine 1 tab bid, taken w/ 25mg tab per taper directions orally 2 times a day; 30 days lamotrigine Take w/ 150mg tab per taper directions: 175mg qam and 200mg qhs x's 1 week, then 175mg bid x's 1 week, then 150mg qam and 175mg qhs x's 1 week, then 150mg bid. 30 days riboflavin (vitamin B2) 400 mg PO DAILY 30 days rosuvastatin 5 mg PO DAILY semaglutide (weight loss) (Wegovy) mg subcut sumatriptan succinate 50 - 100 mg orally at onset of headache, may repeat in 2 hrs PRN; max 2 tabs per day or 4 tabs/week (may take with Ibuprofen) 30 days vitamin A palmitate 3,000 mcg PO DAILY 30 days zolmitriptan take 1 tab at onset of headache; if no relief, may repeat 1 tab after at least 2 hrs; max = 2 tabs/24 hrs PO 30 days HPI Comments Details: 43-yr-old female presents for f/u televideo visit via [employer]. Pt denies any significant interval medical changes. Pt reports the Emgality helps but wears off at the end of the injection cycle. She has had 2 severe migraine attacks, lasting 2-3 days each. She is having a milder migraine headache 1 day a week. Her previous migraine med tx's- Ajovy- not fully effective, Topiramate- caused kidney stones. Her BP still runs low. Her ENT, who is in [place], has her seeing a vetsibular PT in [place]. She thinks this is helping positional vertigo. The dizziness is less often, but same intensity when it occurs. She is having dizziness a couple days a week where she has to lay down for a couple of hours. She is still easily falling. Her lab work showed CBC, CMP, LFTs, lamotrigine level- WNL. However, results were notable for multiple vitamin deficiencies. Upon review of labs, we did start pt on supplements to replete levels. She states she does eat typical portion sizes, however she is a picky eater and maybe this is why her levels were low. 02/23/24 11:07 Total Protein 6.1 L Albumin 4.1 Vitamin A 36 L Vitamin B1 13 Vitamin B2 <5.0 L Vitamin B12 275 Vitamin C <0.1 L 25-OH Vitamin D Total 21 L Lamotrigine 12.4 PFSH Surgical History Hx of cholecystectomy Hx of appendectomy Family History Father Skin cancer Rheumatic arteritis Social History Alcohol intake: never Patient Tobacco Use Status: Never used Tobacco Physical Exam Const General: cooperative and no acute distress Orientation/consciousness: patient oriented x3 Resp Effort & Inspection: normal respiratory effort and able to speak in complete sentences Neuro General: patient oriented x3 Cognition (Neuro): normal cognition Psych Appearance: grossly normal Mental Status: mental status grossly normal Speech and movement: Normal speech and movement present Affect: normal affect Attitude: cooperative Telehealth Telehealth Telehealth Platform: Telephone Location of provider rendering services: practice address Location of patient: address on file Patient Identification confirmed using: Name, : Yes Telehealth method: video Patient verbally consented to treatment: Yes Patient verbally consented to billing insurance company: Yes Patient informed of any privacy concerns related to visit: Yes Assessment & Plan Assessment & Plan (1) Dizziness: Code(s): R42 - Dizziness and giddiness Category: Medical (2) Falls: Code(s): W19.XXXA - Unspecified fall, initial encounter Category: Medical (3) Vitamin D deficiency: Code(s): E55.9 - Vitamin D deficiency, unspecified Category: Medical (4) Vitamin C deficiency: Code(s): E54 - Ascorbic acid deficiency Category: Medical (5) Riboflavin (vitamin B2) deficiency: Code(s): E53.0 - Riboflavin deficiency Category: Medical (6) Vitamin A deficiency: Code(s): E50.9 - Vitamin A deficiency, unspecified Category: Medical (7) Migraine without aura: Code(s): G43.009 - Migraine without aura, not intractable, without status migrainosus Category: Medical Plan For dizziness and nystagmus: I suspect that patient's recurrent dizziness and nystagmus may be attributed to her lamotrigine use. Patient is currently taking 200 mg b.i.d., which was started prior to her recent 100 lb weight loss. Additionally, this is a high dose of lamotrigine, especially as patient is not on a concomitant enzyme-inducing AED. Lamotrigine level- WNL. Trial slowly tapering off Lamotrigine in hopes this reduces falls/dizziness/nystagmus- 175mg qam and 200mg qhs x's 1 week, then 175mg bid x's 1 week, then 150mg qam and 175mg qhs x's 1 week, then 150mg bid. Will f/u w/ pt in 4 wks to check status. Recheck nutritional labs. For now, continue Vit B2, vit A, Vit D, Vit C supplements. Concur w/ vetsibular tx. F/u w/ ENT as scheduled. ? For acute migraine tx: Trial Zolmitriptan 5mg prn, MR in 2 hrs. Previous trials: Sumatriptan- not tolerated. For miagraine prevention: Start Qulipta 30mg qhs. Once qulipta available, stop Emgality as it is not fully effective- does not last entire injection cycle. Previous migraine prevention tx's: Ajovy- not fully effective. Topiramate- caused kidney stones. Contraindications- any anti-HTN agnets (beta-blockers, candasartan, verapamil) d/t hypotension, dizziness, repeated falls. ? For nocturnal hypoxemia noted on recent HST: Will refer patient for pulmonology consult. ? Follow-up upon review of above, and in 4-6 months or sooner as needed. Orders: Orders Vitamin C Today E50.9 - Vitamin A deficiency, unspecified, E53.0 - Riboflavin deficiency, E54 - Ascorbic acid deficiency, E55.9 - Vitamin D deficiency, unspecified, R42 - Dizziness and giddiness, W19.XXXA - Unspecified fall, initial encounter Vitamin D 25-OH (D2 and D3) Today E50.9 - Vitamin A deficiency, unspecified, E53.0 - Riboflavin deficiency, E54 - Ascorbic acid deficiency, E55.9 - Vitamin D deficiency, unspecified, R42 - Dizziness and giddiness, W19.XXXA - Unspecified fall, initial encounter Vitamin B12 and Folate Today E50.9 - Vitamin A deficiency, unspecified, E53.0 - Riboflavin deficiency, E54 - Ascorbic acid deficiency, E55.9 - Vitamin D deficiency, unspecified, R42 - Dizziness and giddiness, W19.XXXA - Unspecified fall, initial encounter Comprehensive Met. Panel Today E50.9 - Vitamin A deficiency, unspecified, E53.0 - Riboflavin deficiency, E54 - Ascorbic acid deficiency, E55.9 - Vitamin D deficiency, unspecified, R42 - Dizziness and giddiness, W19.XXXA - Unspecified fall, initial encounter Vitamin A Today E50.9 - Vitamin A deficiency, unspecified, E53.0 - Riboflavin deficiency, E54 - Ascorbic acid deficiency, E55.9 - Vitamin D deficiency, unspecified, R42 - Dizziness and giddiness, W19.XXXA - Unspecified fall, initial encounter Complete Blood Count Auto Diff Today E50.9 - Vitamin A deficiency, unspecified, E53.0 - Riboflavin deficiency, E54 - Ascorbic acid deficiency, E55.9 - Vitamin D deficiency, unspecified, R42 - Dizziness and giddiness, W19.XXXA - Unspecified fall, initial encounter Vitamin B2 (Riboflavin) Today E50.9 - Vitamin A deficiency, unspecified, E53.0 - Riboflavin deficiency, E54 - Ascorbic acid deficiency, E55.9 - Vitamin D deficiency, unspecified, R42 - Dizziness and giddiness, W19.XXXA - Unspecified fall, initial encounter Copper, serum Today E50.9 - Vitamin A deficiency, unspecified, E53.0 - Riboflavin deficiency, E54 - Ascorbic acid deficiency, E55.9 - Vitamin D deficiency, unspecified, R42 - Dizziness and giddiness, W19.XXXA - Unspecified fall, initial encounter Medications: New lamotrigine 1 tab bid, taken w/ 25mg tab per taper directions orally 2 times a day; 30 days 60 tabs 2RF zolmitriptan take 1 tab at onset of headache; if no relief, may repeat 1 tab after at least 2 hrs; max = 2 tabs/24 hrs PO 30 days 12 tabs 3RF lamotrigine Take w/ 150mg tab per taper directions: 175mg qam and 200mg qhs x's 1 week, then 175mg bid x's 1 week, then 150mg qam and 175mg qhs x's 1 week, then 150mg bid. 30 days 60 tabs 0RF atogepant 30 mg PO DAILY 30 days 30 tabs 6RF Coding Level of Care Code Tele Est Pt Level 4 (90458) Diagnoses Dizziness R42 Falls W19.XXXA Vitamin D deficiency E55.9 Vitamin C deficiency E54 Riboflavin (vitamin B2) deficiency E53.0 Vitamin A deficiency E50.9 Migraine without aura G43.009
== END 2024-05-03 12:14 | disposition home or self-care (01) ==
LOC: HO.HSMS 07:32
PROVIDERS: PCP Physician Assistant; Visit Provider Nurse Practitioner Family
DX: R42 Dizziness and giddiness (principal); R29.6 Repeated falls; E55.9 Vitamin D deficiency, unspecified; E54 Ascorbic acid deficiency; E53.0 Riboflavin deficiency; E50.9 Vitamin A deficiency, unspecified; G43.009 Migraine without aura, not intractable, without status migrainosus
CPT/HCPCS: 99214

== ENCOUNTER → 2024-05-03 07:32 | Outpatient (BNVA) | payer BC, SELFPAY | PROVIDERS: PCP Physician Assistant; Visit Provider Nurse Practitioner Family ==